=== PATIENT | male | born 1965 | race African-American/Black ===

== ENCOUNTER 2022-07-26 08:10 | Day surgery (SDC) | payer BC ==
[2022-07-12 11:08] LABS: Absolute Lymphocytes (CBC) 1.8 K/uL (0.7-4.9); Hematocrit 45.4 % (39.6-49.0); Lymphocytes % 37.8 % (15.3-44.8); MPV 7.9 fL (7.6-11.3); Protime INR 1.02; RBC Red Blood Cell Count 5.53 M/uL (4.33-5.43)
[2022-07-12 11:16] LABS: Potassium 4.1 mmol/L (3.5-5.1)
--- NOTE | 2022-07-12 14:21 | EKG ---
Test Date: 2022-07-12 Test Time: 10:32:26 [employer] Reports Developer: MARISELA MEASUREMENT RESULTS: Intervals: Rate: 56 NC: 144 QRSD: 88 QT: 400 QTc: 386 [place]: P: 68 NC: 144 QRS: -23 T: 5 INTERPRETIVE STATEMENTS: Sinus bradycardia Otherwise normal ECG No previous ECG available for comparison Electronically Signed On 07-12-22 14:20:49 [employer] by Naren Allen
[2022-07-26] MEDS ORDERED: NA CHLORIDE 0.9% 1,000 ML ONE (08:35)
[2022-07-26] MEDS ORDERED: CEFAZOLIN SODIUM 2 GM/VIAL ONE (08:35)
[2022-07-26] MEDS ORDERED: propofoL 200 MG/20 ML VIAL IV ONE (09:20)
[2022-07-26] MEDS ORDERED: FENTANYL CITR 100 MCG/2 ML ONE (09:20)
[2022-07-26] MEDS ORDERED: LIDOCAINE 1% MPF 5 ML VIAL ONE (09:20)
[2022-07-26] MEDS ORDERED: MIDAZOLAM HCL 2 MG/2 ML INJ ONE (09:20)
[2022-07-26] MEDS ORDERED: ONDANSETRON 4 MG/2 ML VIAL ONE (09:21)
[2022-07-26] MEDS ORDERED: KETOROLAC 30 MG/ML INJ ONE (11:07)
[2022-07-26 11:16] VITALS: O2SAT 100
[2022-07-26] MEDS ORDERED: CODEINE 30MG/APAP 300MG TAB PO PRN (11:38)
[2022-07-26] MEDS ORDERED: PHENAZOPYRIDINE 100MG TAB PO ONE (11:38)
--- NOTE | 2022-07-26 12:26 | OP ---
Surgeon: BABITA SALCEDO Preoperative Diagnoses: Benign prostatic hypertrophy with lower urinary tract obstruction and sympto ms. Meatal stenosis. Postoperative Diagnoses: Benign prostatic hypertrophy with lower urinary tract obstruction and sympt oms. Meatal stenosis. Principal Procedures: Prostatic urethral lift/UroLift with 4 implants placed. Meatal dilation using sounds. Indication For Procedure: Mr. Hair is a 57-year-old gentleman with lower urinary tract obstruction d ue to BPH refractory to medical therapy. Cystoscopic evaluation as an outpatient revealed lateral lo bar hypertrophy with elevated median bar without significant intravesical projection. He was breastfeeding peer counselor ed on options to include the UroLift as opposed to continuing on alpha-selina therapy, but given his use, he elected to proceed with surgical therapy. Procedure In Detail: The patient was consented in the preoperative holding area before being transfe rred to the operative suite where general anesthesia was induced. He was given Ancef 2 g IV antimicr obial prophylaxis and pneumo boots were provided for DVT prophylaxis. He was placed in the lithotomy position, padded and secured to the table appropriately. His genitalia were prepped with Hibiclens and he was draped in standard fashion. The case was begun using the 20-Swedish UroLift obturator to t raverse the urethra, but before it could be inserted to his meatus, significant stenosis prevented pa ssage of the scope. As a result, we employed urethral sounds to dilate the meatus to 26-Swedish with relative ease. I was then able to pass the 20-Swedish UroLift delivery scope into his bladder with ea se. I then switched the obturator for a UroLift delivery device and implant and targeted the left an terolateral portion of his prostate this time even more superolaterally given the elevated bladder ne ck to try to lift the anterior zone of his prostate and create the anterior channel desired. As a re sult, the first implant site was selected at around 1 p.m. About 1.5 to 2 cm distal to the bladder n caryn, the trigger was pulled after angling about 10 degrees laterally into the tissue at that location . This first full of the trigger did deliver the needle through the surface of the prostate before a n additional 10 degrees of compression was obtained and the second pull of the trigger did deliver th e capsular tab to the surface of the prostate and partially retract the needle. A third pull of the triggered then completely retracted the needle and further tensioned the suture before 4th pull of th e trigger was performed after angling the suture back toward the midline and advancing 2 to [address] the bladder neck. Allowing the monofilament to line up in the center of the delivery bay, then pr ompted pull of the 4th trigger, which then tailored the suture and applied the urethral implant. Wit h the implant seated with a nice rim of prostate tissue at the bladder neck between the implant and e ntry into the intravesical space, optimal targeting had been achieved. As a result, I advanced the U roLift delivery device back into his bladder and exchanged it for a new implant. Similar targeting w as performed on the right side of his prostate approximately 1.5 to 2 cm distal to the bladder neck a t the 11 o'clock position. Again, optimal targeting of the implant did achieve significant elevation of the bladder neck and create an anterior channel despite the elevated median bar in that location. I then switched for visual obturator and surveyed the channel and there was residual lateral lobar hypertrophy at the apical mid zone of the prostate. As a result, 2 additional implants were placed, 1 on the left at the level of the verumontanum and 1 on the right at the level of the verumontanum. This did appropriately lateralize the tissue in the apical mid zone of the prostate and completely cr eate a beautiful continuous anterior channel from the verumontanum into the bladder neck. As a resul t, after survey with visual obturator revealed persistence of that channel, no further implants were deemed necessary so I filled his bladder and removed the UroLift scope replacing it with an 18-Swedish catheter. 30 cc of sterile water was placed in balloon, and the catheter was allowed to decompress his bladder with light pink urine. He was then taken out of the lithotomy position, awakened from ge neral anesthesia, transferred to a stretcher, and then transferred to the recovery room in good condi tion. Complications: None. Discharge Disposition: He will be standard postop UroLift pathway with followup in about 1 month int erval assessment. VIRGIL/MODL Voice ID: [id number] Report ID: [id number]
[2022-07-26 14:21] VITALS: BP 144/88; TEMP 97.2
== END 2022-07-26 13:11 | disposition home or self-care (01) ==
LOC: OR 08:10 → EDSTATUS 13:00 → OR 13:11
PROVIDERS: ATTEND Urology
PROC: 0T7D8DZ Dilation of Urethra with Intraluminal Device, Via Natural or Artificial Opening Endoscopic (ICD-10-PCS; principal; 2022-07-26 09:30)
DX: N40.1 Benign prostatic hyperplasia with lower urinary tract symptoms (principal)
CPT/HCPCS: 93005; 87088; 85025; 87086; 80048; 36415; 85610; 82947; 52441; 52442 ×3; J2704; J2001; J2250; J3010; J7030; J2405